=== PATIENT | female | born 1980 | race Caucasian/White ===

== ENCOUNTER 2019-08-29 14:32 | Outpatient (RCR) | payer OTHER, SELFPAY ==
[2019-07-19 14:20] VITALS: BP 116/72; PULSE 79
[2019-08-29 15:15] VITALS: BP 158/72; PULSE 74
== END 2019-09-05 12:17 | disposition home or self-care (01) ==
LOC: ANHOBOP 14:32
PROVIDERS: Visit Provider Obstetrics & Gynecology Gynecology
DX: O24.419 Gestational diabetes mellitus in pregnancy, unspecified control (principal); Z3A.33 33 weeks gestation of pregnancy; Z3A.39 39 weeks gestation of pregnancy
CPT/HCPCS: 59025

== ENCOUNTER 2019-09-01 07:03 | Inpatient (IN) | payer OTHER, SELFPAY ==
[2019-09-01] VITALS (30 sets, daily range): BP systolic 110–144; BP diastolic 58–112; PULSE 63–89; TEMP 36.4–37.2; BMI 37.0
--- NOTE | 2019-09-01 07:49 | WPDOBADMIT ---
Obstetrics - Admit Note Admission Note: record reviewed. No pertinent additions to the history and/or any subsequent changes in the physical findings that are not consistent with the expected course of the were found. Additions to the history and/or subsequent changes in the physical findings follow. Here for MIL. Cervix 3-4/50/-3 AROM with clear fluid. FHTs reactive
--- NOTE | 2019-09-01 07:59 | LDADM ---
This patient, Svetlana Montoya, was admitted to Labor/Delivery/Recovery 108 on 09/01/19 at 07:03. Plans for labor, pain management and were discussed with patient. Patient/family oriented to hospital policies and general routines including ID bracelet, bed and alarms, visiting hours, pain management, procedures, bathroom and other care routines, personal items, smoking policy, room service/diet and guest tray routines, infant security routines, and visiting hours. Patient/Family are encouraged to report perceived risks to care and to ask questions if they do not understand what they are told or what they should do. See OBIX for further documentation.
[2019-09-01 08:12] LABS: Glucose Point of Care 95 (65-105)
[2019-09-01 08:14] LABS: Basophils Percent Auto 0.2 % (0.2-1.2); Eosinophils Absolute Auto 0.1 K/mm3 (0-0.3); Eosinophils Percent Auto 0.9 % (0-4.4); Hematocrit 34.7 % (37.0-47.0); Immature Granulocyte Absolute 0.07 K/mm3 (0.00-0.031); Immature Granulocyte Percent A 0.6 % (0-0.5); Lymphocytes Absolute Auto 2.35 K/mm3 (0.9-3.2); Lymphocytes Percent Auto 19.8 % (18.3-44.2); Mean Corpuscular HGB Conc 31.7 g/dl (32-36); Mean Corpuscular Hemoglobin 29.3 pg (26-34); Mean Corpuscular Volume 92.3 fl (80-100); Mean Platelet Volume 11.2 fl (7.4-10.4); Monocytes Absolute Auto 0.7 K/mm3 (0.1-0.6); Monocytes Percent Auto 5.7 % (2.6-8.5); Neutrophils Absolute Auto 8.7 K/mm3 (1.3-6.7); Neutrophils Percent Auto 72.8 % (45.5-73.1); Platelet Count Result 378 k/mm3 (150-375); Red Blood Count 3.76 M/mm3 (4.2-5.4); Red Cell Distribution Width 16.5 % (11.5-14.5); White Blood Count 11.9 K/mm3 (4.5-10.0)
[2019-09-01 12:18] LABS: Glucose Point of Care 89 (65-105)
[2019-09-01] MEDS: LACTATED RINGERS 1,000 ML 125 ML IV CONT ×2 (13:14→20:07)
[2019-09-01 16:16] LABS: Glucose Point of Care 83 (65-105)
[2019-09-01 20:10] LABS: Glucose Point of Care 118 (65-105)
[2019-09-01 22:22] LABS: Glucose Point of Care 151 (65-105)
[2019-09-01] MEDS: INSULIN ASPART (*BKC) 100 UNITS/ML SUB-Q (23:07)
[2019-09-02] VITALS (161 sets, daily range): BP systolic 79–192; BP diastolic 32–141; PULSE 53–161; RESP 16–18; TEMP 36.7–37.6; O2SAT 89–100
[2019-09-02 00:08] LABS: Glucose Point of Care 165 (65-105)
[2019-09-02] MEDS: INSULIN ASPART (*BKC) 100 UNITS/ML 10 UNITS SUB-Q ×3 (00:25→02:54)
[2019-09-02 01:31] LABS: Glucose Point of Care 158 (65-105)
[2019-09-02] MEDS: AMPICILLIN 2 GM/NS 100 ML 2 GM/100 ML BAG IVPB (02:33)
[2019-09-02 02:49] LABS: Glucose Point of Care 141 (65-105)
[2019-09-02] MEDS: LACTATED RINGERS 1,000 ML 125 ML IV CONT ×2 (04:07→07:36)
[2019-09-02 04:18] LABS: Glucose Point of Care 143 (65-105)
--- NOTE | 2019-09-02 04:43 | WPDANESEPP ---
Anes - Eval Pre Procedure Procedure: labor epidural Date/Time: 09/02/19 04:43 Surgeon: Endy Preop Diagnosis: Pain in labor Pre Op Diagnosis: Induction of Labor Patient Data Age: 39 Gender: F Height: 1.68 m Weight: 104 kg Last Vital Signs Temp 36.9 C 09/02/19 02:37 Pulse 94 09/02/19 04:42 BP 121/62 09/02/19 04:42 Pulse Ox 93 09/02/19 04:42 Allergies Allergy/AdvReac Type Severity Reaction Status Date / Time Pertussis Vaccines Allergy Seizure Verified 08/04/19 13:40 Home Medications Medication Instructions Recorded Confirmed Type PNV cmb#95-ferrous fumarate-FA 1 tablet PO DAILY 08/04/19 09/01/19 History [] aspirin 81 mg PO DAILY 08/04/19 09/01/19 History cetirizine [Zyrtec] 10 mg PO DAILY 08/04/19 09/01/19 History ergocalciferol (vitamin D2) 50,000 unit PO WEEKLY 08/04/19 09/01/19 History [Vitamin D2] insulin NPH isoph U-100 human 20 unit SUBCUT HS 08/04/19 09/01/19 History [Humulin N NPH U-100 Insulin] Laboratory Tests 09/01/19 09/01/19 09/01/19 07:54 08:04 08:04 WBC 11.9 K/mm3 H K/mm3 (4.5-10.0) RBC 3.76 M/mm3 L M/mm3 (4.2-5.4) Hgb 11.0 g/dL L g/dL (12.0-15.0) Hct 34.7 % L % (37.0-47.0) MCV 92.3 fl fl (80-100) MCH 29.3 pg pg (26-34) MCHC 31.7 g/dl L g/dl (32-36) RDW 16.5 % H % (11.5-14.5) Plt Count 378 k/mm3 H k/mm3 (150-375) MPV 11.2 fl H fl (7.4-10.4) Immature Gran % (Auto) 0.6 % H % (0-0.5) Neut % (Auto) 72.8 % % (45.5-73.1) Lymph % (Auto) 19.8 % % (18.3-44.2) [place] % (Auto) 5.7 % % (2.6-8.5) Eos % (Auto) 0.9 % % (0-4.4) Baso % (Auto) 0.2 % % (0.2-1.2) Lymph # (Auto) 2.35 K/mm3 K/mm3 (0.9-3.2) [place] # (Auto) 0.7 K/mm3 H K/mm3 (0.1-0.6) Eos # (Auto) 0.1 K/mm3 K/mm3 (0-0.3) Baso # (Auto) 0.0 K/mm3 K/mm3 (0.0-0.1) Abs Immat Gran (auto) 0.07 K/mm3 H K/mm3 (0.00-0.031) Absolute Neuts (auto) 8.7 K/mm3 H K/mm3 (1.3-6.7) Absolute Nucleated RBC 0.0 K/mm3 K/mm3 (0.0-0.012) Nucleated RBC % 0.0 % % (0.0-0.2) POC Capillary Glucose 95 mg/dl mg/dl (65-105) RPR Pending Blood Type Antibody Screen 09/01/19 09/01/19 09/01/19 08:04 12:01 16:01 WBC RBC Hgb Hct MCV MCH MCHC RDW Plt Count MPV Immature Gran % (Auto) Neut % (Auto) Lymph % (Auto) [place] % (Auto) Eos % (Auto) Baso % (Auto) Lymph # (Auto) [place] # (Auto) Eos # (Auto) Baso # (Auto) Abs Immat Gran (auto) Absolute Neuts (auto) Absolute Nucleated RBC Nucleated RBC % POC Capillary Glucose 89 mg/dl mg/dl 83 mg/dl mg/dl (65-105) (65-105) RPR Blood Type A Positive Antibody Screen Negative 09/01/19 09/01/19 09/02/19 20:01 22:18 00:05 WBC RBC Hgb Hct MCV MCH MCHC RDW Plt Count MPV Immature Gran % (Auto) Neut % (Auto) Lymph % (Auto) [place] % (Auto) Eos % (Auto) Baso % (Auto) Lymph # (Auto) [place] # (Auto) Eos # (Auto) Baso # (Auto) Abs Immat Gran (auto) Absolute Neuts (auto) Absolute Nucleated RBC Nucleated RBC % POC Capillary Glucose 118 mg/dl H mg/dl 151 mg/dl H mg/dl 165 mg/dl H mg/dl (65-105) (65-105) (65-105) RPR Blood Type An
[2019-09-02 04:58] LABS: Glucose Point of Care 133 (65-105)
[2019-09-02] MEDS: INSULIN ASPART (*BKC) 100 UNITS/ML 15 UNITS SUB-Q (05:14)
[2019-09-02 06:16] LABS: Glucose Point of Care 87 (65-105)
[2019-09-02] MEDS: AMPICILLIN 1 GM/NS 50 ML 1 GM/50 ML BAG IVPB (06:16)
[2019-09-02 07:09] LABS: Glucose Point of Care 54 (65-105)
[2019-09-02 09:02] LABS: Glucose Point of Care 59 (65-105)
[2019-09-02 09:02] LABS: Glucose Point of Care 83 (65-105)
--- NOTE | 2019-09-02 10:02 | WPDANESEFPP ---
Anes - Eval Final PreProcedure Day of Procedure 09/02/19 10:02 Patient weight: obese Heart: regular rate and rhythm Lungs: clear to auscultation Airway: Mallampati scale class II Neurological: alert and oriented ASA classification: III Emergent: no Anesthetic plan: proceed Anesthesia type and monitoring: regional epidural and standard monitoring Other findings: use existing epid for c/s Informed Consent: The patient's anesthetic plan and its attendant risks and benefits were discussed with the patient/family/POA. Questions were solicited and answers provided to the satisfaction of the patient/family/POA.
--- NOTE | 2019-09-02 10:16 | P.PNOB_ITS ---
OB - PN: Subj Subjective Date/time seen: 09/02/19 10:16 Interval history: Patient with slow progress to complete after she allowed pitocin to be started yesterday afternoon. Now has been complete and has been pushing without descent. Decided csection at 0951 when I called in for report. There is a delay due to the anesthesia cart having technical issues. FHTs re active and patient stable. Will proceed when able. OB - PN: Obj Data Labs CBC & Chem 7: 09/01/19 08:04 Labs: Laboratory Results - last 24 hr 09/01/19 09/01/19 09/01/19 12:01 16:01 20:01 POC Capillary Glucose 89 83 118 H 09/01/19 09/02/19 09/02/19 22:18 00:05 01:26 POC Capillary Glucose 151 H 165 H 158 H 09/02/19 09/02/19 09/02/19 02:47 03:58 04:49 POC Capillary Glucose 141 H 143 H 133 H 09/02/19 09/02/19 09/02/19 06:12 07:04 08:08 POC Capillary Glucose 87 54 L* 59 L* 09/02/19 08:54 POC Capillary Glucose 83 OB - PN A/P Time Spent With Patient Time: Total time spent is greater than 50% in coordination of care (as d ocumented) at patient's floor/unit and/or counseling patient:
[2019-09-02 10:31] LABS: Glucose Point of Care 69 (65-105)
[2019-09-02 10:48] LABS: Rapid Plasma Reagin Non-Reactive (NonReactive)
--- NOTE | 2019-09-02 11:13 | PM.OP ---
Procedure Note - Brief Procedure Note - Brief Date of procedure: 09/02/19 Pre-op diagnosis: Induction of Labor IUP 39 5/7 wks GDMA2 failure to descend Post-op diagnosis: same Procedure performed: LTCS Anesthesia: epidural Surgeon: Norma Schumacher MD Estimated blood loss (mL): 235 Drains: Yes (zuniga) Packing: No Pathology: yes (placenta) Complications: No immediate complications Condition: stable Disposition: PACU Findings: Very thick meconium; male infant in CRISTHIAN position deep in pelvis; 4/9 Apgars; weight 7#1oz; cord around body x 1 with minimal warton's jelly uterus with 6 cm anterior left fundal fibroid subserosal; vesiouterine peritoneum over anterior uterus lower segment with friable, tissue
--- NOTE | 2019-09-02 11:17 | PM.OBDSVD ---
DS: Diagnosis Admitting Diagnosis Admitting Diagnosis: IUP 39 5/7 wks GDMA2 Discharge Diagnosis (1) 39 weeks gestation of : Code(s): Z3A.39 - 39 weeks gestation of Status: Acute (2) Failure of descent in labor, delivered, current hospitalization: Code(s): O62.2 - Other uterine inertia Status: Acute (3) GDM (gestational diabetes mellitus): Code(s): O24.419 - Gestational diabetes mellitus in , unspecified control Status: Acute OB - DS: Summary OB Procedures : NST and Ultrasound OB Procedures Intrapartum: OB Procedures: : None Peripartum Data Procedures: Procedures Operation Date: 09/02/19 10:15 <No data on this case meets the specified criteria> Time Spent with Patient Time attestation: Total time spent providing and/or coordinating discharge services: DS: Data Data Completed and Pending Labs on day of discharge: Labs from last 24 hours 09/02/19 09/02/19 09/02/19 10:26 08:54 08:08 POC Capillary Glucose 69 83 59 L* R 09/02/19 09/02/19 09/02/19 07:04 06:12 04:49 POC Capillary Glucose 54 L* 87 133 H R 09/02/19 09/02/19 09/02/19 03:58 02:47 01:26 POC Capillary Glucose 143 H 141 H 158 H R 09/02/19 09/01/19 09/01/19 00:05 22:18 20:01 POC Capillary Glucose 165 H 151 H 118 H R 09/01/19 09/01/19 09/01/19 16:01 12:01 08:04 POC Capillary Glucose 83 89 RPR Non-reactive Discharge Plan Discharge Attending physician on discharge: Norma Schumacher Consulting providers: Harsha Ramey ; Sheng Perez Discharging Clinician: Eli Ward Anticipated Discharge Date/Time: 09/04/19 10:55 Patient Disposition: Home, Self-Care Activity: no driving, may drive after 2 weeks and pelvic rest Diet: regular Wound Care Instructions: incision open to air Discharge Instructions: Education: Mom and Baby Guide Given to: Mother Follow-Up: Call your delivering provider's office for an appointment to be seen in: 1 Week Mom and baby should come to the [facility] for the follow-up appointment. Appointment Date/Time: September 05, 2019 at 12:30 pm What to expect at your follow-up visit: Physical Assessment Call [phone] if you are unable to keep your appointment time. BREAST CARE: 1. Wear a snug supportive bra. 2. For engorgement discomfort: Breast Feeding: A. Apply warm moist washcloths B. Express milk as needed to relieve engorgement C. Wear loose clothing 3. For sore nipples: A. Identify correct latch-on B. Apply warm moist washcloths before and after nursing C. Air dry nipples after nursing D. May apply Lansinoh cream to nipples ABDOMINAL INCISION: (if applicable) 1. Allow incision to air dry 2. Do NOT use lotions for powders on your incision 3. When showering, allow soap and water to run over the incision, but do not wash incision EPISIOTOMY/PERINEAL CARE: 1. Until bleeding stops, use your peewee bottle after urinating 2. Change your pad frequently throughout the day 3. No tub baths until seen by your physician - You may shower ACTIVITY: 1. Rest as much as possible. 2. Do not exercise or lift anything heavier than your baby (such as laundry or other children.) 3. Avoid stairs or driving as much as possible. 4. Do not put anything into the vagina. No douching, tampons, or sexual activity until seen by physician. NOTIFY PHYSICIAN IF YOU HAVE ANY QUESTIONS OR IF ANY OF THE FOLLOWING SYMPTOMS OCCUR: 1. If your episiotomy or incision becomes red, swollen, or more painful than what you have experienced in the hospital. 2. If your vaginal bleeding becomes foul smelling. 3. If your vaginal bleeding becomes more heavy than a period or if your bleeding changes from pink to bright red. However, you may pass an
--- NOTE | 2019-09-02 12:20 | OP_ITS ---
DATE OF PROCEDURE: 09/02/2019 PREOPERATIVE DIAGNOSES: 1. Intrauterine at 39 and 5/7th weeks. 2. Gestational diabetes, insulin requiring. 3. Failure to descend. POSTOPERATIVE DIAGNOSES: 1. Intrauterine at 39 and 5/7th weeks. 2. Gestational diabetes, insulin requiring. 3. Failure to descend. PROCEDURE: Primary low-transverse section. ANESTHESIA: Epidural. FINDINGS: Upon opening the uterine cavity, there is very thick meconium fluid noted. The head is deep in the pelvis and in the left occiput posterior position. The cord is noted to be very clumsy with minimal Dittmer's jelly. It is around the body x1 loosely. The Apgars are 4 at 1 minute, 9 at 5 minutes; 7 pounds 1 ounce male . Uterus has a 6 cm fibroid on the left anterior fundus that is subserosal. The tubes and ovaries appear grossly normal. The vesicouterine peritoneum over the lower uterine segment is very friable and clumsy. Has vesicular appearing tissue that tears very easily. ESTIMATED BLOOD LOSS: 235 cc. PATHOLOGY: Placenta. DESCRIPTION OF PROCEDURE: The patient was taken to the operating room, placed under anesthesia. Once the technical difficulties with the anesthesia cart were resolved, the patient's epidural was placed. Once anesthesia was deemed adequate, she was prepped and draped in usual sterile fashion. The Pfannenstiel skin incision was made with a scalpel and carried down to the underlying layer of fascia with the scalpel. The midline was incised with a scalpel in a horizontal fashion. The incision was extended laterally using Ramírez scissors. Subcutaneous tissues are Bovie cauterized for hemostasis. The fascial edges were grasped with Ochsner, tented and dissected off using sharp dissection and blunt dissection. The rectus muscles were in the midline. The peritoneum was tented and entered with Metzenbaum. The incision was extended with blunt traction. The Oswald O retractor was placed. The Pean was used to grasp the vesicouterine peritoneum. It does not hold, the tissue was very friable and tears easily. The tissue was grasped deeper and further caudally, tented and entered with Metzenbaum. It was noted to be very friable and very thick. There are some vesicular appearing tissues on the surface. The lower uterine segment has been incised in a transverse fashion. Very thick meconium was noted. The turf grower was already present in the operating room at this time. The infant was brought up from the pelvis into the incision and the was fully delivered. The cord was clamped and cut and the infant handed immediately to the waiting pediatric team. The cord was clamped and cut. Dissection was taken for gases and cord blood. The placenta was removed using manual traction. The uterus was cleared of all clots and debris. The posterior edges of the uterine incision were grasped with ring forceps. The uterine incision was then closed using 0 Monocryl in a running locked fashion. Same suture was used to imbricate. Good hemostasis was noted. The vesicouterine peritoneum above the incision is noted to have several bleeding areas that were cauterized with Bovie. The fibroid and tubes and ovaries are inspected and noted as above. The Oswald O retractor was removed. The fascia was closed using 0 Vicryl in a running fashion. Subcutaneous tissues are irrigated and made hemostatic using Bovie cautery. Skin was closed using 4-0 Vicryl in a subcuticular fashion. [place]-Flex was placed over the incision. The patient was taken to Recovery in stable condition. Shaggy I MT: Cammy
--- NOTE | 2019-09-02 14:22 | OBPPTRN ---
Patient transferred to post room #288 via stretcher. Support person present. Oriented to unit, room, information board, rooming in, admission packet and security measures. Patient verbalizes understanding.
--- NOTE | 2019-09-02 15:20 | PC.NURSE ---
Consulted with patient, mother states made attempts to latch after delivery with and without nipple shield. Reports shield was used due to keeps tongue up and does not allow for a deep latch. Reviewed feeding cues, frequencies, duration of feedings, feeding elimination flow sheet, and signs of adequate intake. Demonstrated stimulation techniques to wake for feeding. Assisted with to breast. Reviewed positioning/alignment in cross cradle, holding breast in U hold and guided asymmetrical latch on. was unable to latch correctly. keeps tongue up and does not drop to allow correct latch. Discussed to allow infant to suck on a clean finger for a few minutes before latching to assist with tongue training to drop tongue. Several attempts made before infant was able to latch correctly using a nipple shield. Once on, infant made no effort to suckle. Attempt for 10 minutes with no effective suckling. Advised to skin to skin and attempt again in 30 minutes. Instructed mother to call out for RN assistance if she is unable to latch infant for feeding or she has discomfort with nursing. Instructed feeding should be initiated three hours from start of last feeding or if feeding cues are noted before. Mother voiced understanding of information shared.
[2019-09-02] MEDS: KETOROLAC 30 MG/ML VIAL (*BKC) IV PUSH (16:08)
[2019-09-02] MEDS: DEXTROSE 5%/0.45% SOD CHL 1,000 ML 125 ML IV CONT (18:18)
[2019-09-03 01:14] VITALS: BP 111/63; PULSE 91; RESP 17; TEMP 36.9
[2019-09-03 04:59] LABS: Basophils Percent Auto 0.1 % (0.2-1.2); Eosinophils Percent Auto 0.1 % (0-4.4); Hematocrit 29.3 % (37.0-47.0); Hemoglobin 9.4 g/dL (12.0-15.0); Immature Granulocyte Absolute 0.14 K/mm3 (0.00-0.031); Immature Granulocyte Percent A 0.7 % (0-0.5); Lymphocytes Absolute Auto 1.87 K/mm3 (0.9-3.2); Lymphocytes Percent Auto 9.8 % (18.3-44.2); Mean Corpuscular HGB Conc 32.1 g/dl (32-36); Mean Corpuscular Hemoglobin 29.1 pg (26-34); Mean Corpuscular Volume 90.7 fl (80-100); Mean Platelet Volume 10.3 fl (7.4-10.4); Monocytes Absolute Auto 0.9 K/mm3 (0.1-0.6); Monocytes Percent Auto 4.9 % (2.6-8.5); Neutrophils Percent Auto 84.4 % (45.5-73.1); Platelet Count Result 294 k/mm3 (150-375); Red Blood Count 3.23 M/mm3 (4.2-5.4); Red Cell Distribution Width 16.7 % (11.5-14.5)
[2019-09-03 05:10] VITALS: BP 112/64; PULSE 90; RESP 17; TEMP 36.8
[2019-09-03] MEDS: IBUPROFEN 600 MG TABLET PO ×3 (05:21→20:51)
[2019-09-03 07:30] VITALS: BP 110/58; PULSE 90; RESP 16; RESP 18; TEMP 36.2; O2SAT 98
[2019-09-03] MEDS: DOCUSATE SODIUM 100 MG CAPSULE PO ×2 (08:55→17:45)
[2019-09-03] MEDS: MULTIVIT/MIN/PREN/FOL AC/IRON TABLET 1 TAB PO (08:56)
[2019-09-03] MEDS: POLYSACCHARIDE IRON COMPLEX 150 MG CAPSULE PO ×2 (08:56→17:45)
--- NOTE | 2019-09-03 11:44 | WPDANLDPN2 ---
Anes-Prog Note L&D Date/Time: 09/03/19 11:44 Comfortable throughout: section Neuraxial method: epidural Epidural/Spinal procedure site: clean & non-tender Neuro status: Neuro function grossly intact. Cardiovascular status: normal Respiratory status: normal Airway patency: baseline Mental status: baseline Post-Op hydration status: normal Vital Signs: Last Vital Signs Temp 36.8 C 09/03/19 05:10 Pulse 90 09/03/19 05:10 Resp 17 09/03/19 05:10 BP 112/64 09/03/19 05:10 Pulse Ox 97 09/02/19 17:00 Pain score (VAS): 0/10. Patient resting in bed at time of assessment, appears comfortable. Support person at bedside. I/O: Intake & Output 09/02/19 09/03/19 09/03/19 23:59 07:59 15:59 Intake Total 300 1500 Output Total 3000 Balance 300 -1500 Post-procedural complaints: none Patient feedback: Patient satisfied with anesthetic care.
--- NOTE | 2019-09-03 11:45 | WPDANLDNPN2 ---
Anes-Prog Note L&D-Neuraxial Date/Time: 09/03/19 11:45 Neuraxial medications: epidural PF morphine Opiod-related complaints: none Patient feedback: Patient satisfied with post-operative pain management.
--- NOTE | 2019-09-03 14:16 | PM.OBPNVD ---
OB - PN: Subj Subjective Date/time seen: 09/03/19 14:16 Interval history: Patient with slow progress to complete after she allowed pitocin to be started yesterday afternoon. Now has been complete and has been pushing without descent. Decided csection at 0951 when I called in for report. There is a delay due to the anesthesia cart having technical issues. FHTs reactive and patient stable. Will proceed when able. Patient comments: pain well controlled, tolerating diet and flatus present [place] baby status: doing well feeding status: exclusively breast feeding OB - PN: Obj Data Labs CBC & Chem 7: 09/03/19 04:49 Labs: Laboratory Results - last 24 hr 09/03/19 04:49 WBC 19.0 H RBC 3.23 L Hgb 9.4 L Hct 29.3 L MCV 90.7 MCH 29.1 MCHC 32.1 RDW 16.7 H Plt Count 294 MPV 10.3 Immature Gran % (Auto) 0.7 H Neut % (Auto) 84.4 H Lymph % (Auto) 9.8 L [place] % (Auto) 4.9 Eos % (Auto) 0.1 Baso % (Auto) 0.1 L Lymph # (Auto) 1.87 [place] # (Auto) 0.9 H Eos # (Auto) 0.0 Baso # (Auto) 0.0 Abs Immat Gran (auto) 0.14 H Absolute Neuts (auto) 16.0 H Absolute Nucleated RBC 0.0 Nucleated RBC % 0.0 OB - PN A/P Plan day: 1 Comments: Desires infant to be circumcised. Procedure discussed as well as risk i.e infection, bleeding, injury to penis,need of surgery later. Couple voiced verbalized. All question answered. Time Spent With Patient Time: Total time spent is greater than 50% in coordination of care (as documented) at patient's floor/unit and/or counseling patient: Time with patient: 15 - 25 minutes Review of Systems Constitutional: Constitutional: Reports no additional constitutional complaints Cardiovascular: Cardiovascular: Reports no additional cardiovascular complaints Respiratory: Respiratory: Reports no additional respiratory complaints Gastrointestinal: Gastrointestinal: Reports no additional gastrointestinal complaints Exam Const: General: comfortable, no acute distress, alert and awake Resp: Auscultation: clear to auscultation bilaterally Cardio: Rate: regular rate GI: Auscultation: normal bowel sounds Other: Incision: C/D/I
[2019-09-03 20:36] VITALS: BP 124/61; PULSE 79; RESP 18; TEMP 36.8; O2SAT 96
[2019-09-04] MEDS: IBUPROFEN 600 MG TABLET PO (05:42)
[2019-09-04] MEDS: DOCUSATE SODIUM 100 MG CAPSULE PO (08:40)
[2019-09-04] MEDS: MULTIVIT/MIN/PREN/FOL AC/IRON TABLET 1 TAB PO (08:40)
[2019-09-04] MEDS: POLYSACCHARIDE IRON COMPLEX 150 MG CAPSULE PO (08:40)
[2019-09-04 09:15] VITALS: BP 114/61; PULSE 60; RESP 20; TEMP 36.8; O2SAT 98
--- NOTE | 2019-09-04 10:53 | P.PNOB_ITS ---
OB - PN: Subj Subjective Date/time seen: 09/04/19 10:53 Interval history: Patient with slow progress to complete after she allowed pitocin to be started yesterday afternoon. Now has been complete and has been pushing without descent. Decided csection at 0951 when I called in for report. There is a delay due to the anesthesia cart having technical issues. FHTs re active and patient stable. Will proceed when able. Patient comments: no complaints, pain well controlled, tolerating diet and flatus present baby status: doing well and nursing well [place] feeding status: exclusively breast feeding OB - PN: Obj Data Labs CBC & Chem 7: 09/03/19 04:49 OB - PN A/P Plan day: 2 Plan: discharge home Time Spent With Patient Time: Total time spent is greater than 50% in coordination of care (as documented) at patient's floor/unit and/or counseling patient: Time with patient: less than 15 minutes Review of Systems Constitutional: Constitutional: Reports no additional constitutional complaints Cardiovascular: Cardiovascular: Reports no additional cardiovascular complaints Respiratory: Respiratory: Reports no additional respiratory complaints Gastrointestinal: Gastrointestinal: Reports no additional gastrointestinal complaints Exam Const: General: comfortable, no acute distress, alert and awake Resp: Auscultation: clear to auscultation bilaterally Cardio: Rate: regular rate GI: Auscultation: normal bowel sounds Other: Incision: C/D/I
--- NOTE | 2019-09-04 10:58 | PM.OBDSVD ---
OB - DS: Summary OB Procedures : NST OB Procedures Intrapartum: OB Procedures: : None Peripartum Data Procedures: Procedures Operation Date: 09/02/19 10:15 Actual Procedures Side Surgeon p Section Norma Schumacher MD Time Spent with Patient Time attestation: Total time spent providing and/or coordinating discharge services: DS: Data Data Completed and Pending Pending studies at discharge: Pending at discharge 09/02/19 10:51 Surgical [PTH] Routine Discharge Plan Discharge Attending physician on discharge: Norma Schumacher Discharging Clinician: Eli Ward Anticipated Discharge Date/Time: 09/04/19 10:55 Patient Disposition: Home, Self-Care Activity: no driving, may drive after 2 weeks and pelvic rest Diet: regular Wound Care Instructions: incision open to air Patient Instructions: Antibiotic Form Stand Alone Forms: General Discharge Information Follow-up/Referrals: Norma Schumacher MD [Physician] - 1 Week Discharge Medications: New hydrocodone-acetaminophen [[place]] 10-325 mg Tablet 1 tab PO Q3H PRN (Reason: Pain Rated 7-10) Qty: 20 RF: 0 docusate sodium 100 mg Capsule 100 mg PO BID Qty: 60 RF: 0 polysaccharide iron complex 150 mg iron Capsule 150 mg PO BIDWM Qty: 60 RF: 0 ibuprofen 600 mg Tablet 600 mg PO Q6H PRN (Reason: Cramping) Qty: 60 RF: 0 Continued ergocalciferol (vitamin D2) [Vitamin D2] 1,250 mcg (50,000 unit) Capsule 50,000 unit PO WEEKLY RF: 0 PNV cmb#95-ferrous fumarate-FA [] 28 mg iron- 800 mcg Tablet 1 tablet PO DAILY RF: 0 Discontinued Humulin N NPH U-100 Insulin 100 unit/mL Suspension 20 unit SUBCUT HS RF: 0 cetirizine [Zyrtec] 10 mg Tablet 10 mg PO DAILY RF: 0 aspirin 81 mg Tablet,Chewable 81 mg PO DAILY RF: 0 Date of admission: 09/01/19 07:03 Primary Care Provider: UNKNOWN,DOCTOR Admitting Provider: Norma Schumacher Attending physician on admission: Norma Schumacher Condition: Stable
--- NOTE | 2019-09-04 12:36 | PC.NURSE ---
Patient viewed the discharge video Mother & Baby Care, The First Two Weeks . Patient was given the opportunity and encouraged to ask questions. Patient verbalized understanding of information shared and has been given the mother/baby guide for home reference.
[2019-09-05 13:19] VITALS: BP 130/74; PULSE 73; RESP 18; TEMP 36.8
--- NOTE | 2019-09-12 08:18 | PM.IMHP ---
H&P: HPI History of Present Illness Chief complaint: Induction of Labor Narrative: Svetlana Montoya is a 39 year old female here for [facility] for GDMA2. Patient with slow progress to complete and pushing. Had minimal descent with several hours of pushing. Recommended to proceed with csection and patient agreed. otherwise uncomplicated. Followed by MFM with u/s for 6 cm fibroid that remained stable through . [facility] Past Medical History Medical History (Updated 09/02/19 @ 11:18 by Norma Schumacher MD) GDM (gestational diabetes mellitus) Family History Family History (Updated 08/04/19 @ 13:45 by Gene Linares RN) Father Diabetes mellitus Multiple system atrophy P Social History Social History Smoking status: Never smoker Second hand tobacco smoke exposure: No Substance use: never Gender identity (if verbalized by the patient): Female Meds Home Medications and Allergies Home Medications Medication Instructions Recorded Confirmed Type PNV cmb#95-ferrous fumarate-FA 1 tablet PO DAILY 08/04/19 09/01/19 History [] ergocalciferol (vitamin D2) 50,000 unit PO WEEKLY 08/04/19 09/01/19 History [Vitamin D2] docusate sodium 100 mg PO BID #60 cap 09/04/19 Rx hydrocodone-acetaminophen [[place]] 1 tab PO Q3H PRN #20 tablet 09/04/19 Rx ibuprofen 600 mg PO Q6H PRN #60 tablet 09/04/19 Rx polysaccharide iron complex 150 mg PO BIDWM #60 cap 09/04/19 Rx Allergies Allergy/AdvReac Type Severity Reaction Status Date / Time Pertussis Vaccines Allergy Seizure Verified 08/04/19 13:40 Exam Const: General: healthy appearing and alert Orientation/consciousness: patient oriented x3 Resp: Effort & Inspection: normal respiratory effort Auscultation: clear to auscultation bilaterally Cardio: Rate: regular rate Rhythm: regular rhythm GI: GI Palp: Yes Soft to palpation, No Tenderness to palpation present (GI) and No Palpable mass present : External Female Exam: normal external appearance Speculum Exam - Vagina: normal appearance of the vagina and normal vaginal discharge Speculum Exam - Cervix: normal appearance of the cervix Neuro: General: patient oriented x3 Assessment and Plan Assessment and plan (1) Failure of descent in labor, delivered, current hospitalization: Code(s): O62.2 - Other uterine inertia Status: Acute Assessment and Plan: plan to proceed with csection (2) 39 weeks gestation of : Code(s): Z3A.39 - 39 weeks gestation of Status: Acute (3) GDM (gestational diabetes mellitus): Code(s): O24.419 - Gestational diabetes mellitus in , unspecified control Status: Acute
== END 2019-09-04 13:50 | disposition home or self-care (01) | DRG 786 ==
LOC: ANHLDR 09-02 11:20 → ANHOB2 09-04 10:58 → ANHLDR 09-06 09:43 → ANHOB2 09-06 09:43
PROVIDERS: Admitting Provider Obstetrics & Gynecology Gynecology; Visit Provider Obstetrics & Gynecology
PROC: 10D00Z1 Extraction of Products of Conception, Low, Open Approach (ICD-10-PCS; CPT 59514; principal; 2019-09-02 10:15)
DX: O32.4XX0 Maternal care for high head at term, not applicable or unspecified (principal); O41.1230 Chorioamnionitis, third trimester, not applicable or unspecified; O42.92 Full-term premature rupture of membranes, unspecified as to length of time between rupture and onset of labor; O77.0 Labor and delivery complicated by meconium in amniotic fluid; O76 Abnormality in fetal heart rate and rhythm complicating labor and delivery; O69.82X0 Labor and delivery complicated by other cord entanglement, without compression, not applicable or unspecified; O62.2 Other uterine inertia; O24.424 Gestational diabetes mellitus in childbirth, insulin controlled; O99.214 Obesity complicating childbirth; E66.9 Obesity, unspecified; Z37.0 Single live birth; Z3A.39 39 weeks gestation of pregnancy
CPT/HCPCS: 36415; 85025; 86592; 86850; 86900; 86901; 88307; A9270; J0290; J1815; J1885; J2590; J2795; J7120

== ENCOUNTER 2021-01-08 08:34 | Outpatient (CLI) | payer OTHER, SELFPAY ==
[2021-01-08 09:55] LABS: Vitamin D 25 Hydroxy 55.4 ng/mL
== END 2021-01-08 08:35 | disposition home or self-care (01) ==
PROVIDERS: Visit Provider Obstetrics & Gynecology Gynecology
DX: E55.9 Vitamin D deficiency, unspecified (principal)
CPT/HCPCS: 36415; 82306; 99212; G0463

== ENCOUNTER 2022-06-23 16:18 | Observation (INO) | payer OTHER, SELFPAY ==
[2022-06-23] VITALS (19 sets, daily range): BP systolic 106–168; BP diastolic 66–94; PULSE 76; RESP 16; TEMP 37.1; O2SAT 91–100
--- NOTE | ~2022-06-23 | US_ITS ---
EXAMINATION: US renal BI DATE: 06/23/2022 21:30 INDICATION: R flank pain, dark urine, n/v TECHNIQUE: Multiple grayscale and Doppler ultrasound images of the kidneys were obtained. COMPARISON: CT abdomen and pelvis and limited abdominal ultrasound performed concurrently. FINDINGS: The right kidney measures 11.1 x 4.2 x 5.7 cm. The left kidney measures 11.7 x 5.8 x 6.1 cm. The kidn eys demonstrate normal parenchymal echogenicity. Anechoic, avascular areas in the left renal pelvis l ikely correspond to the parapelvic cysts seen in the concurrent CT. There is no hydronephrosis. The b ladder is normal. IMPRESSION: Unremarkable renal sonogram findings. Reviewed, dictated and finalized at location K. LLURGICAL ENGINEER
--- NOTE | ~2022-06-23 | CT_ITS ---
EXAMINATION: CT abdomen pelvis w con DATE: 06/23/2022 21:30 INDICATION: RUQ pain, R flank pain, nausea and vomiting, elevated LFTs. TECHNIQUE: Computed tomography (CT) of the abdomen and pelvis was performed with 100 mL Omnipaque-350 intravenous contrast. Automated exposure control and iterative reconstruction technique were employe d. The dose-length product was 922.67 mGy-cm. COMPARISON: Renal and limited abdominal ultrasound examinations performed concurrently. FINDINGS: Lower thorax: Small hiatal hernia. Liver: Hepatomegaly. Mild intrahepatic bile duct dilation. Biliary/Gallbladder: Mild gallbladder hydrops. Mild gallbladder wall thickening/inflammatory change. Mild extrahepatic bile duct dilation, common duct measures 7 mm at the brad hepatis. Normal tapering distal duct without stone or mass detected. Pancreas: No mass or duct dilation. Spleen: Normal. Adrenals:No mass. Kidneys: No mass, stone, or hydronephrosis. Bilateral peripelvic cysts, more numerous in the left kid iliana. GI tract: No small or large bowel dilation. Appendix not confidently visualized. Mesentery/Peritoneum: No ascites, mass, or free air. Retroperitoneum: No mass. Pelvis: The bladder is normal. Calcified fundal uterine fibroid. 1.7 cm left ovarian cyst. Soft Tissues: Uncomplicated fat containing umbilical hernia. Bones: No acute osseous finding. IMPRESSION: Hepatomegaly. Cholelithiasis. Mild gallbladder hydrops with gallbladder wall thickening. Mild intra a nd extrahepatic bile duct dilation, without definite obstructing distal common bile duct stone or mas s, possibly reactive to the inflammatory gallbladder change. Reviewed, dictated and finalized at location K. T TIRE REPAIRER IMPRESSION: Hepatomegaly. Cholelithiasis. Mild gallbladder hydrops with gallbladder wall th ickening. Mild intra and extrahepatic bile duct dilation, without definite obst ructing distal common bile duct stone or mass, possibly reactive to the inflamm atory gallbladder change.
--- NOTE | ~2022-06-23 | US_ITS ---
EXAMINATION: US abdomen limited DATE: 06/23/2022 21:30 INDICATION: n/v, R flank pain TECHNIQUE: Multiple grayscale and Doppler ultrasound images of limited portions of the abdomen were o btained. COMPARISON: CT abdomen and pelvis and renal ultrasound performed concurrently. FINDINGS: The visualized portions of the pancreas are normal. The liver is enlarged with normal echog enicity and echotexture. No surface nodularity. Normal hepatopetal flow in the main portal vein. Mild gallbladder hydrops. Gallbladder wall thickening to 4 mm. Multiple small gallstones present in the g allbladder fundus. The common bile duct measures 5 mm. There was no sonographic [place] sign. IMPRESSION: Mild gallbladder hydrops with cholelithiasis and gallbladder wall thickening. In concert with the con current CT findings, these findings may represent cholecystitis in the appropriate clinical context. Reviewed, dictated and finalized at location K. SURY DIRECTOR IMPRESSION: Mild gallbladder hydrops with cholelithiasis and gallbladder wall thickening. I n concert with the concurrent CT findings, these findings may represent cholecy stitis in the appropriate clinical context.
--- NOTE | ~2022-06-23 | XR_ITS ---
EXAMINATION: XR ERCP DATE: 06/24/2022 15:29 INDICATION: Gallstones. Right upper quadrant pain. TECHNIQUE: Multiple spot fluoroscopic images of the right upper quadrant were obtained during endosco pic retrograde cholangiopancreatography (ERCP) performed by Dr. Guerrero. Radiologist was not present fo r the imaging or procedure. The amount of fluoroscopy time used during this procedure was 3.1 minutes . COMPARISON: None. FINDINGS: Cannulation and retrograde contrast injection into the common bile duct demonstrates small filling de fect at the distal most aspect of the common bile duct. The stone measures 5 mm the common bile duct up to 7 mm in maximal diameter utilizing the height of the L1 vertebral body as an internal control. No other filling defects appreciated. IMPRESSION: 1. Millimeter gallstone in the mildly dilated distal most common bile duct. Please refer to the ERCP procedure note for additional details. Reviewed, dictated and finalized at location A. R EQUIPMENT INSTALLER IMPRESSION: 1. Millimeter gallstone in the mildly dilated distal most common bile duct. Ple ase refer to the ERCP procedure note for additional details.
[2022-06-23 18:20] LABS: Appearance Urine Slightly Cloudy (Clear); Bilirubin Urine 2+ (Negative); Blood Urine Trace-intact (Negative); Color Urine Yellow (Yellow); Glucose Urine UA Negative (Negative); Ketones Urine 1+ mg/dL (Negative); Leukocyte Esterase Ur Negative LEU/UL (Negative); Nitrate Urine Negative (Negative); Protein Urine 2+ mg/dL (Negative); Specific Grav Ur 1.025 (1.001-1.035); pH Urine 6.5 (5.0-9.0)
[2022-06-23 18:42] LABS: Bacteria Urine Trace /hpf; Mucus Urine Heavy /lpf; RBC Urine 21-50 /hpf (0-2); Squamous Epithelial Cell Urine Many /hpf (Few); WBC Urine 0-3 /hpf
[2022-06-23 18:46] LABS: Add Urine Microscopic? YES
[2022-06-23 20:01] LABS: Basophils Percent Auto 0.3 % (0.2-1.2); Eosinophils Percent Auto 0.3 % (0-4.4); Hematocrit 37.3 % (37.0-47.0); Hemoglobin 12.2 g/dL (12.0-15.0); Immature Granulocyte Absolute 0.03 K/mm3 (0.00-0.031); Immature Granulocyte Percent A 0.3 % (0-0.5); Lymphocytes Absolute Auto 1.05 K/mm3 (0.9-3.2); Lymphocytes Percent Auto 11.6 % (18.3-44.2); Mean Corpuscular HGB Conc 32.7 g/dl (32-36); Mean Corpuscular Hemoglobin 30.1 pg (26-34); Mean Corpuscular Volume 92.1 fl (80-100); Mean Platelet Volume 10.3 fl (7.4-10.4); Monocytes Absolute Auto 0.6 K/mm3 (0.1-0.6); Monocytes Percent Auto 6.7 % (2.6-8.5); Neutrophils Absolute Auto 7.3 K/mm3 (1.3-6.7); Neutrophils Percent Auto 80.8 % (45.5-73.1); Platelet Count Result 416 k/mm3 (150-375); Red Blood Count 4.05 M/mm3 (4.2-5.4); Red Cell Distribution Width 13.4 % (11.5-14.5); White Blood Count 9.1 K/mm3 (4.5-10.0)
[2022-06-23 20:12] LABS: Alanine Aminotransferase 576 U/L (6-35); Albumin Level 4.4 g/dL (3.5-5.1); Alkaline Phosphatase 161 U/L (38-126); Anion Gap 12 mmol/L (8-16); Aspartate Amino Transferase 742 U/L (14-36); Blood Urea Nitrogen 9 mg/dL (7-17); Calcium 8.9 mg/dL (8.4-10.2); Carbon Dioxide 26 mmol/L (22-30); Chloride 100 mmol/L (98-107); Estimated CRCL calculation 145 ml/min; Estimated Glomerular Filt Rate > 60; Glucose 138 mg/dL (65-110); Lipase 242 U/L (23-300); Sodium 138 mmol/L (137-145)
[2022-06-23 20:35] LABS: Beta HCG Quantitative < 2.39 mIU/ML
[2022-06-23] MEDS: LACTATED RINGERS 1,000 ML 999 ML IV CONT (21:14)
[2022-06-23] MEDS: METOCLOPRAMIDE HCL INJ 10 MG/2 ML VIAL IV PUSH (21:14)
[2022-06-23] MEDS: MORPHINE SULFATE (*CRX) 4 MG/ML INJ IV PUSH (23:10)
--- NOTE | 2022-06-23 23:31 | PC.NURSE ---
Patient LR still running. This RN will start antibiotics as soon as that is done.
[2022-06-23 23:42] LABS: SARS-CoV-2 RNA PCR Negative
--- NOTE | 2022-06-23 23:45 | ED.ABDPAIN ---
HPI - Abdominal Pain General Chief Complaint: Abdominal Pain Stated Complaint: RUQ pain Time Seen by Provider: 06/23/22 19:34 History of Present Illness HPI narrative: Patient has had intermittent right flank pain and nausea and vomiting since her 2 years ago, but today it got much worse, with severe pain and multiple episodes of emesis. No fevers or chills but feels like her urine is dark because she cannot keep anything down. Related Data Home Medications Medication Instructions Recorded Confirmed ergocalciferol (vitamin D2) 1,250 50,000 unit PO WEEKLY 08/04/19 09/01/19 mcg (50,000 unit) capsule (Vitamin D2) vit no.95-ferrous 1 tablet PO DAILY 08/04/19 09/01/19 fumarate 28 mg-folic acid 800 mcg tablet () Allergies Allergy/AdvReac Type Severity Reaction Status Date / Time Pertussis Vaccines Allergy Seizure Verified 06/23/22 16:48 Review of Systems Review of Systems: CONST: No fever. HEENT: No sore throat C/V: No chest pain RESP: No cough GI: Reports abdominal pain, nausea, vomiting : Dark urine M/S: No joint pain. SKIN: No rash. NEURO: [No headache or focal numbness or weakness] PSYCH: [No depression] [facility] Past Medical History Medical History GDM (gestational diabetes mellitus) Family History Family History Father Diabetes mellitus Multiple system atrophy P Social History Social History Smoking status: Never smoker Second hand tobacco smoke exposure: No Substance use: never Gender identity (if verbalized by the patient): Female Exam Narrative: EXAMINATION OF ORGAN SYSTEMS/BODY AREAS: Constitutional: Vital signs per nursing GENERAL: Appears uncomfortable HEAD: Normal with no signs of head trauma. EYES: EOMI, conjunctiva normal ENT: Hearing grossly intact LUNGS: Nonlabored breathing. HEART: [Regular rate and rhythm] ABD: [Soft], [tender to palpation] right upper quadrant/flank EXT: Normal range of motion SKIN: [No rashes or lesions.] NEURO: [Alert and oriented x 3. No gross focal sensory or strength deficits.] PSYCH: Normal affect Course Vital Signs Vital signs: Vital Signs Temperature 98.7 F 06/23/22 16:44 Pulse Rate 76 06/23/22 16:44 Respiratory Rate 16 06/23/22 16:44 Blood Pressure 168/94 H 06/23/22 16:44 Pulse Oximetry 99 06/23/22 16:44 Temperature 98.7 F 06/23/22 16:44 Pulse Rate 76 06/23/22 16:44 Respiratory Rate 16 06/23/22 16:44 Blood Pressure 168/94 H 06/23/22 16:44 Pulse Oximetry 99 06/23/22 16:44 MDM - Abdominal Pain MDM Narrative Medical decision making narrative: Electronic medical record was reviewed. Patient presented to the ED with complaint of [abdominal pain and vomiting]. Vitals [were within acceptable limits]. Physical exam revealed [tenderness to palpation in right upper quadrant]. Based on the patient's history and physical exam, my differential includes but is not limited to [cholecystitis, nephrolithiasis, gastritis, gastroenteritis, pancreatitis, appendicitis]. [IV access was established by myself; verbal consent was obtained. [Right] arm was prepped and cleaned with chlorhexidine. The linear probe was also cleansed and covered. 20-gauge 2.5 angiocatheter was placed in the right forearm. The line was secured in place after it was checked and flushed. Patient tolerated the procedure well without any complications.. Patient was given reglan, IV fluids]. CBC, BMP, lipase, LFTs, bilirubin and alk phos were obtained. Labs were pertinent for elevated LFTs, bilirubin signs. [Decision was made to obtain a CT-abdomen and ultrasound to evaluate for acute abdominal process. CT-abdomen consistent with possible cholecystitis.] On reevaluation, the patient is still having pain and she is given a dose of morphine with improvement of symptoms.
[2022-06-24] VITALS (12 sets, daily range): BP systolic 108–150; BP diastolic 62–73; PULSE 60–80; RESP 16–24; TEMP 35.6–36.8; O2SAT 96–100; BMI 34.4
--- NOTE | 2022-06-24 01:01 | ADMGEN ---
This patient, Svetlana Montoya, was admitted to [facility] Surg Room 314-01. Patient/family oriented to hospital policies and general routines including ID bracelet, bed and alarms, visiting hours, pain management, procedures, bathroom and other care routines, personal items, smoking policy, room service/diet, and visiting hours. Information on how to activate the Rapid Response Team has been discussed. Patient/Family are encouraged to report perceived risks to care and to ask questions if they do not understand what they are told or what they should do.
[2022-06-24] MEDS: MORPHINE SULFATE (*CRX) 4 MG/ML INJ IV PUSH ×4 (01:11→11:20)
[2022-06-24 07:30] LABS: Hematocrit 36.7 % (37.0-47.0); Hemoglobin 11.8 g/dL (12.0-15.0); Mean Corpuscular HGB Conc 32.2 g/dl (32-36); Mean Corpuscular Hemoglobin 29.9 pg (26-34); Mean Corpuscular Volume 92.9 fl (80-100); Mean Platelet Volume 10.4 fl (7.4-10.4); Platelet Count Result 352 k/mm3 (150-375); Red Blood Count 3.95 M/mm3 (4.2-5.4); Red Cell Distribution Width 13.6 % (11.5-14.5); White Blood Count 8.3 K/mm3 (4.5-10.0)
[2022-06-24 07:41] LABS: Alanine Aminotransferase 711 U/L (6-35); Albumin Level 3.8 g/dL (3.5-5.1); Alkaline Phosphatase 204 U/L (38-126); Aspartate Amino Transferase 715 U/L (14-36); Bilirubin Direct 0.9 mg/dL (0-0.3); Bilirubin,Total 2.9 mg/dL (0.2-1.3)
[2022-06-24] MEDS: LACTATED RINGERS 1,000 ML 150 ML IV CONT ×3 (08:51→14:08)
[2022-06-24] MEDS: FAMOTIDINE 20 MG/2 ML VIAL IV PUSH ×2 (08:53→20:17)
--- NOTE | 2022-06-24 09:06 | WPDGICN ---
Assessment and Plan Assessment and plan (1) Transaminitis: Code(s): R74.01 - Elevation of levels of liver transaminase levels Status: Acute Assessment and Plan: Elevation of bilirubin and marked elevation of enzymes suggest choledocholithiasis. I will schedule her for ERCP which hopefully can be done later today. I discussed with her the anatomy of the biliary tract. I explained that she probably has stones and/or sludge at the distal common bile duct. I explained that the ERCP is a nonoperative means of clearing the common bile duct prior to a laparoscopic cholecystectomy. Alternatively, 1 could have an open procedure and exploration of the common bile duct. She understands that that would be much more involved. I explained that there is a risk of pancreatitis and a slight risk of bleeding or perforation when performing ERCP. Explained that we try to minimize the risk of pancreatitis through hydration and anti-inflammatory medication. (2) Acute cholecystitis: Code(s): K81.0 - Acute cholecystitis Status: Acute Assessment and Plan: CT scan shows: Hepatomegaly. Cholelithiasis. Mild gallbladder hydrops with gallbladder wall thickening. Mild intra and extrahepatic bile duct dilation, without definite obstructing distal common bile duct stone or mass, possibly reactive to the inflammatory gallbladder change. She may well have a fatty liver but I doubt that her baseline liver enzymes are as high as they are now. She is concerned that her liver might be a problem if we do not find stones in her bile duct. I told her that most likely this is all acute but of course she will be followed afterwards. She has been trying to get connected with the primary care physician but had not done that yet. GI Consult Note Consult date/time: 06/24/22 09:06 HPI: Svetlana Montoya is a 42 year old female who presented to the emergency room yesterday because of persistent vomiting and abdominal pain. She states that ever since she delivered her child 2 years ago, she has periodic attacks of pain that are in the right side of the chest. She feels that more in the back. Lately she has felt more in the right upper quadrant as well. When she gets the pain it feels like a squeezing. She will then get nauseated and after vomiting the pain usually subsides. It was occurring monthly until about 12 months ago. She has had very few episodes until 1 2 weeks ago that never seems to have gone away. She has had persistent discomfort and then this week, specifically yesterday, began vomiting. She had also noticed that her urine was a darker color the last 2 days. She has never had liver disease jaundice or hepatitis. She presses concerned about the fact her liver enzymes are elevated at this time. The in fact are higher than they were yesterday. Review of Systems Review of Systems: All systems reviewed & are unremarkable except as noted in HPI and below PMFSH Past Medical History Medical History GDM (gestational diabetes mellitus) Family History Family History Father Diabetes mellitus Multiple system atrophy P Mother Hypertension Prediabetes Social History Social History Smoking status: Never smoker Second hand tobacco smoke exposure: No Alcohol intake: never Substance use: never Lack of Transportation: No Lack of Food: Never True Current Housing: I Have Housing Concerned About Future Housing: No Difficulty Paying Gas/Electric Bills: No Difficulty Paying for Meds: No Currently Unemployed: No Education: Master's Degree or Higher Difficulty w/ Childcare or Family Care: No Gender identity (if verbalized by the patient): Female Spiritual care concerns: No Meds Home Medications and Allergies Home Medications Medication Instructi
--- NOTE | 2022-06-24 10:59 | PM.IMHP ---
H&P: HPI History of Present Illness Date/Time: 06/24/22 10:59 Chief Complaint: RUQ pain, vomiting Narrative: This is a 42-year-old women who presented to the ER with complaints of RUQ abdominal pain, back pain, and vomiting. Since about 1 month after delivery in 2019, she has been having intermittent episodes of diarrhea following greasy, fatty foods about monthly. She has also had a few episodes about yearly of mid back pain with vomiting after eating greasy foods. Typically after she vomits, her pain subsides at home and she has not had to seek medical attention for these symptoms. About 2 weeks ago, she had eaten chili for dinner and had an onset of the same type of mid back pain that woke her up in the middle of the night. This pain was more severe and radiated to her RUQ. She reports vomiting, but her pain did not subside. Her back pain continued throughout the day and she continued to have a pressure type of pain in the RUQ. The back pain improved, but ever since that episode she has felt full and had a mild pressure pain in the RUQ. She was able to eat and drink without vomiting. She felt that she was eating less because she felt full. Yesterday, she woke up around 5:00 am with the same type of back pain she felt previously. She had corn dogs and macaroni and cheese the night before for dinner. She began vomiting and continued to vomit multiple times throughout the day. She noticed her urine was a dark orange yesterday afternoon and though she was dehydrated from the vomiting. She decided to come into the ER for further evaluation after symptoms persisted. CT scan of the abdomen and pelvis showed hepatomegaly, cholelithiasis, mild gallbladder hydrops with gallbladder wall thickening, mild intra and extrahepatic bile duct dilation without definite obstructing common duct stone. RUQ US showed mild gallbladder hydrops with cholelithiasis and gallbladder wall thickening, which may represent cholecystitis. Renal US was also ordered for the dark urine and back pain, which was normal. Labs showed WBC 9,100, total bilirubin 2.0, AST 742, ALT 576, alk phos 161, and normal lipase. ER physician called our service and she has been admitted in the setting of cholecystitis with elevated liver enzymes. Labs were repeated this morning and her total bilirubin went up to 2.9. We have since consulted GI. The patient is now seen on the medical floor. Her back and RUQ abdominal pain has improved with IV analgesics. Her nausea has improved and she has not had any vomiting this morning. No other complaints at this time. Only previous abdominal surgery was a . Review of Systems Review of Systems: All systems reviewed & are unremarkable except as noted in HPI and below Constitutional: Constitutional: Reports no additional constitutional complaints, Denies chills, Denies fatigue, Denies fever(s) and Denies headache(s) Eyes: Eyes: Reports no additional eye complaints ENT: Reports system reviewed and no additional complaints, except as documented and Denies dizziness Cardiovascular: Cardiovascular: Reports no additional cardiovascular complaints, Denies chest pain and Denies leg edema Respiratory: Respiratory: Reports no additional respiratory complaints, Denies cough and Denies dyspnea Gastrointestinal: Gastrointestinal: Reports as per HPI, Reports no additional gastrointestinal complaints, Reports abdominal pain, Denies melena, Denies hematochezia, Denies coffee ground emesis, Reports nausea, Reports vomiting and Denies hematemesis Genitourinary: Genitourinary: Reports no additional female genitourinary complaints, Denies dysuria and Reports other (dark urine) Musculoskeletal: Musculoskeletal: Reports no additional musculoskeletal complaints, Denies abnormal gait, Denies joint swelling, Denies numbness and Denies tingling Integumentary/Breasts: Skin/Breast: Reports system reviewed and no additional complaints, except as docu and Denies jaundice Ne
--- NOTE | 2022-06-24 14:20 | WPDANESEPPF ---
Anes - Initial Pre Proc Eval Procedure: Operation Date: 06/24/22 14:15 Proposed Procedures p Endoscopic Retro Cholangiopancreatogram - Sagar Guerrero MD Operation Date: 06/25/22 12:00 Proposed Procedures p Laparoscopic Cholecystectomy - Matt Qiu DO Date/Time: 06/24/22 14:20 Surgeon: Matt Qiu DO Pre Op Diagnosis: cholecystitis, elevated LFTs Patient Data Age: 42 Gender: F Height: 1.68 m Weight: 96.7 kg Last Vital Signs Temp 98.3 F 06/24/22 14:04 Pulse 68 06/24/22 14:04 Resp 19 06/24/22 14:04 BP 122/64 06/24/22 14:04 Pulse Ox 100 06/24/22 14:04 O2 Del Method Room Air 06/24/22 14:04 Allergies Allergy/AdvReac Type Severity Reaction Status Date / Time Pertussis Vaccines Allergy Seizure Verified 06/24/22 13:59 Home Medications Medication Instructions Recorded Confirmed Type ergocalciferol (vitamin D2) 1,250 50,000 unit PO WEEKLY 08/04/19 06/24/22 History mcg (50,000 unit) capsule (Vitamin D2) cetirizine 5 mg tablet 5 mg PO DAILY 06/24/22 06/24/22 History multivitamin 1 tablet PO DAILY 06/24/22 06/24/22 History Laboratory Tests 06/23/22 06/23/22 06/23/22 17:53 19:52 19:52 WBC 9.1 K/mm3 K/mm3 (4.5-10.0) RBC 4.05 M/mm3 L M/mm3 (4.2-5.4) Hgb 12.2 g/dL g/dL (12.0-15.0) Hct 37.3 % % (37.0-47.0) MCV 92.1 fl fl (80-100) MCH 30.1 pg pg (26-34) MCHC 32.7 g/dl g/dl (32-36) RDW 13.4 % % (11.5-14.5) Plt Count 416 k/mm3 H k/mm3 (150-375) MPV 10.3 fl fl (7.4-10.4) Immature Gran % (Auto) 0.3 % % (0-0.5) Neut % (Auto) 80.8 % H % (45.5-73.1) Lymph % (Auto) 11.6 % L % (18.3-44.2) [place] % (Auto) 6.7 % % (2.6-8.5) Eos % (Auto) 0.3 % % (0-4.4) Baso % (Auto) 0.3 % % (0.2-1.2) Lymph # (Auto) 1.05 K/mm3 K/mm3 (0.9-3.2) [place] # (Auto) 0.6 K/mm3 K/mm3 (0.1-0.6) Eos # (Auto) 0.0 K/mm3 K/mm3 (0-0.3) Baso # (Auto) 0.0 K/mm3 K/mm3 (0.0-0.1) Abs Immat Gran (auto) 0.03 K/mm3 K/mm3 (0.00-0.031) Absolute Neuts (auto) 7.3 K/mm3 H K/mm3 (1.3-6.7) Absolute Nucleated RBC 0.0 K/mm3 K/mm3 (0.0-0.012) Nucleated RBC % 0.0 % % (0.0-0.2) Sodium 138 mmol/L mmol/L (137-145) Potassium 4.0 mmol/L mmol/L (3.4-5.0) Chloride 100 mmol/L mmol/L (98-107) Carbon Dioxide 26 mmol/L mmol/L (22-30) Anion Gap 12 mmol/L mmol/L (8-16) BUN 9 mg/dL mg/dL (7-17) Creatinine 0.50 mg/dL L mg/dL (0.7-1.0) Estim Creat Clear Calc 145 ml/min ml/min Estimated GFR > 60 (59 - ) Glucose 138 mg/dL H mg/dL (65-110) Calcium 8.9 mg/dL mg/dL (8.4-10.2) Total Bilirubin 2.0 mg/dL H mg/dL (0.2-1.3) Direct Bilirubin AST 742 U/L H U/L (14-36) ALT 576 U/L H U/L (6-35) Alkaline Phosphatase 161 U/L H U/L (38-126) Total Protein 8.0 g/dL g/dL (6.3-8.2) Albumin 4.4 g/dL g/dL (3.5-5.1) Lipase 242 U/L U/L (23-300) Beta HCG, Quant Urine Color Yellow (Yellow) Urine Appearance Slightly cloudy (Clear) Urine pH 6.5 (5.0-9.0) Ur Specific [place] 1.025 (1.001-1.035) Urine Protein 2+ mg/dL H mg/dL (Negative) Urine Glucose (UA) Negative mg/dL mg/dL (Negative) Urine Ketones 1+ mg/dL H mg/dL (Negative) Ur Blood (Man) Trace-intact (Negative) Urine Nitrate Negative (Negative) Urine Bilirubin 2+ H (Negative) Urine Urobilinogen 4.0 mg/dL H mg/dL (<2.0) Leukocyte Esterase Rfl Negative BRICE/UL BRICE/UL (Negative) Urine RBC 21-50 /hpf H /hpf (0-2) Urine WBC 0-3 /hpf /hpf
[2022-06-24] MEDS: INDOMETHACIN 50 MG SUPP.RECT RECTAL (14:42)
[2022-06-25] VITALS (9 sets, daily range): BP systolic 116–138; BP diastolic 62–77; PULSE 54–81; RESP 16–18; TEMP 36.1–36.9; O2SAT 98–100
--- NOTE | 2022-06-25 07:14 | WPDGIPROGNO ---
Progress Note: A&P Assessment and Plan (1) Transaminitis: Code(s): R74.01 - Elevation of levels of liver transaminase levels Status: Acute Assessment and Plan: Elevation of bilirubin and marked elevation of enzymes suggest choledocholithiasis. I will schedule her for ERCP which hopefully can be done later today. I discussed with her the anatomy of the biliary tract. I explained that she probably has stones and/or sludge at the distal common bile duct. I explained that the ERCP is a nonoperative means of clearing the common bile duct prior to a laparoscopic cholecystectomy. Alternatively, 1 could have an open procedure and exploration of the common bile duct. She understands that that would be much more involved. I explained that there is a risk of pancreatitis and a slight risk of bleeding or perforation when performing ERCP. Explained that we try to minimize the risk of pancreatitis through hydration and anti-inflammatory medication. 06/25/2022 she feels remarkably better. Her skin, which looked a bit jaundiced in her face yesterday is a little bit less so today. I will have her follow-up with me in the office to ensure that her LFTs return to normal. (2) Acute cholecystitis: Code(s): K81.0 - Acute cholecystitis Status: Acute Assessment and Plan: CT scan shows: Hepatomegaly. Cholelithiasis. Mild gallbladder hydrops with gallbladder wall thickening. Mild intra and extrahepatic bile duct dilation, without definite obstructing distal common bile duct stone or mass, possibly reactive to the inflammatory gallbladder change. She may well have a fatty liver but I doubt that her baseline liver enzymes are as high as they are now. She is concerned that her liver might be a problem if we do not find stones in her bile duct. I told her that most likely this is all acute but of course she will be followed afterwards. She has been trying to get connected with the primary care physician but had not done that yet. 2021 cholecystectomy today (3) Hepatic steatosis: Code(s): K76.0 - Fatty (change of) liver, not elsewhere classified Status: Acute Assessment and Plan: CT scan showed fatty liver. She will follow-up with me in the office to ensure that her liver enzymes return to normal. Subjective Date/time seen: 06/25/22 07:14 She feels much better today. Thinks that her urine is getting deadener in color. The back pain is gone. Surgery is going to be done around noon today. I told her that she should follow-up with me in the office in about 6 weeks because of elevated liver enzymes. Her blood was just recently drawn for today's labs and therefore results are not yet available Exam Const: General: alert and overweight Nutritional Appearance: overweight Orientation/consciousness: patient oriented x3 Resp: Auscultation: clear to auscultation bilaterally Cardio: Rhythm: regular rhythm GI: GI Palp: Yes Soft to palpation, Yes Tenderness to palpation present (GI) (Epigastric), No Guarding due to palpation present (GI) and Yes No hepatosplenomegaly present Auscultation: normal bowel sounds Neuro: General: patient oriented x3 Objective Data Vital Signs Vital Signs: Vital Signs - 24 hr 06/24/22 08:00 06/24/22 13:55 06/24/22 14:04 Temperature 36.7 C 36.8 C Pulse Rate 70 80 68 Respiratory Rate 20 16 19 Blood Pressure 133/63 122/64 Pulse Oximetry 99 97 100 Oxygen Delivery Room Air Room Air Oxygen Flow Rate 06/24/22 15:29 06/24/22 15:39 06/24/22 15:49 Temperature 36.6 C Pulse Rate 74 80 73 Respiratory Rate 24 H 22 H 19 Blood Pressure 122/69 113/72 109/73 Pulse Oximetry 100 97 98 Oxygen Delivery Simple Face Mask Room Air Room Air Oxygen Flow Rate 5 06/24/22 15:59 06/24/22 16:09 06/24/22 16:19 Temperature Pulse Rate 71 60 68 Respiratory Rate 17 18 20 Blood Pressure 112/62 111/64 121/68 Pulse Oximetry 98 98 99 Oxygen Delivery Room Air Room Air
[2022-06-25 07:23] LABS: Alanine Aminotransferase 575 U/L (6-35); Albumin Level 3.9 g/dL (3.5-5.1); Alkaline Phosphatase 234 U/L (38-126); Anion Gap 9 mmol/L (8-16); Aspartate Amino Transferase 217 U/L (14-36); Bilirubin,Total 1.4 mg/dL (0.2-1.3); Blood Urea Nitrogen 8 mg/dL (7-17); Calcium 8.5 mg/dL (8.4-10.2); Carbon Dioxide 23 mmol/L (22-30); Chloride 105 mmol/L (98-107); Estimated CRCL calculation 124 ml/min; Estimated Glomerular Filt Rate > 60; Glucose 121 mg/dL (65-110); Potassium 3.4 mmol/L (3.4-5.0); Sodium 137 mmol/L (137-145)
[2022-06-25 07:29] LABS: Hematocrit 37.8 % (37.0-47.0); Hemoglobin 12.2 g/dL (12.0-15.0); Mean Corpuscular HGB Conc 32.3 g/dl (32-36); Mean Corpuscular Hemoglobin 29.9 pg (26-34); Mean Corpuscular Volume 92.6 fl (80-100); Mean Platelet Volume 10.7 fl (7.4-10.4); Platelet Count Result 383 k/mm3 (150-375); Red Blood Count 4.08 M/mm3 (4.2-5.4); Red Cell Distribution Width 13.6 % (11.5-14.5); White Blood Count 10.1 K/mm3 (4.5-10.0)
[2022-06-25] MEDS: FAMOTIDINE 20 MG/2 ML VIAL IV PUSH (08:42)
[2022-06-25] MEDS: LACTATED RINGERS 1,000 ML 30 ML IV CONT ×2 (11:00→13:09)
--- NOTE | 2022-06-25 11:23 | WPDANESEPPF ---
Anes - Initial Pre Proc Eval Procedure: Operation Date: 06/24/22 14:15 Proposed Procedures p Endoscopic Retro Cholangiopancreatogram - Sagar Guerrero MD Operation Date: 06/25/22 12:00 Proposed Procedures p Laparoscopic Cholecystectomy - Matt Qiu DO Date/Time: 06/25/22 11:23 Surgeon: Matt Qiu DO Pre Op Diagnosis: cholecystitis, elevated LFTs Patient Data Age: 42 Gender: F Height: 1.68 m Weight: 96.7 kg Last Vital Signs Temp 36.1 C L 06/25/22 06:00 Pulse 81 06/25/22 08:00 Resp 16 06/25/22 08:00 BP 116/67 06/25/22 06:00 Pulse Ox 99 06/25/22 08:00 O2 Del Method Room Air 06/25/22 08:00 O2 Flow Rate 5 06/24/22 15:29 Allergies Allergy/AdvReac Type Severity Reaction Status Date / Time Pertussis Vaccines Allergy Seizure Verified 06/24/22 13:59 Home Medications Medication Instructions Recorded Confirmed Type ergocalciferol (vitamin D2) 1,250 50,000 unit PO WEEKLY 08/04/19 06/24/22 History mcg (50,000 unit) capsule (Vitamin D2) cetirizine 5 mg tablet 5 mg PO DAILY 06/24/22 06/24/22 History multivitamin 1 tablet PO DAILY 06/24/22 06/24/22 History Laboratory Tests 06/25/22 06/25/22 06:29 06:29 WBC 10.1 K/mm3 H K/mm3 (4.5-10.0) RBC 4.08 M/mm3 L M/mm3 (4.2-5.4) Hgb 12.2 g/dL g/dL (12.0-15.0) Hct 37.8 % % (37.0-47.0) MCV 92.6 fl fl (80-100) MCH 29.9 pg pg (26-34) MCHC 32.3 g/dl g/dl (32-36) RDW 13.6 % % (11.5-14.5) Plt Count 383 k/mm3 H k/mm3 (150-375) MPV 10.7 fl H fl (7.4-10.4) Sodium 137 mmol/L mmol/L (137-145) Potassium 3.4 mmol/L mmol/L (3.4-5.0) Chloride 105 mmol/L mmol/L (98-107) Carbon Dioxide 23 mmol/L mmol/L (22-30) Anion Gap 9 mmol/L mmol/L (8-16) BUN 8 mg/dL mg/dL (7-17) Creatinine 0.60 mg/dL L mg/dL (0.7-1.0) Estim Creat Clear Calc 124 ml/min ml/min Estimated GFR > 60 (59 - ) Glucose 121 mg/dL H mg/dL (65-110) Calcium 8.5 mg/dL mg/dL (8.4-10.2) Total Bilirubin 1.4 mg/dL H mg/dL (0.2-1.3) AST 217 U/L H U/L (14-36) ALT 575 U/L H U/L (6-35) Alkaline Phosphatase 234 U/L H U/L (38-126) Total Protein 7.0 g/dL g/dL (6.3-8.2) Albumin 3.9 g/dL g/dL (3.5-5.1) Patient hx anesthesia problems: none Family hx anesthesia problems: none Results Review: All pre-operative results and documents have been reviewed as part of the pre-operative evaluation. [facility] Past Medical History Medical History (Updated 06/25/22 @ 07:17 by Sagar Guerrero MD) GDM (gestational diabetes mellitus) Surgical History Surgical History History of delivery Family History Family History Father Diabetes mellitus Multiple system atrophy P Mother Hypertension Prediabetes Social History Social History Smoking status: Never smoker Second hand tobacco smoke exposure: No Alcohol intake: never Substance use: never Lack of Transportation: No Lack of Food: Never True Current Housing: I Have Housing Concerned About Future Housing: No Difficulty Paying Gas/Electric Bills: No Difficulty Paying for Meds: No Currently Unemployed: No Education: Master's Degree or Higher Difficulty w/ Childcare or Family Care: No Gender identity (if verbalized by the patient): Female Spiritual care concerns: No Anes - Eval Final PreProcedure Day of Procedure 06/25/22 11:23 Patient weight: obese Heart: regular rate and rhythm Lungs: clear to auscultation Airway: Mallampati scale Neurological: alert and oriented Last oral intake: >/= 8 hours ASA classification: II Emergent: no Anesthetic plan: proceed Anesthesia type and monito
--- NOTE | 2022-06-25 11:27 | WPDHPUPDATE1 ---
History and Physical Update Update Date/Time: 06/25/22 11:27 History and Physical has been reviewed, including an updated exam of the patient. There are NO changes in the patient's condition. Risks, benefits, and alternatives have been discussed and questions answered. Patient agrees to proceed with procedure.
[2022-06-25] MEDS: BUPIVACAINE/EPINEPHRINE 0.25% 50 ML VIAL 30 ML INFILTRATE (12:25)
--- NOTE | 2022-06-25 13:09 | W.PM.PROC2 ---
Procedure Note - Detailed Date of Procedure 06/25/22 Pre-op Diagnosis cholecystitis with choledocholithiasis Post-op Diagnosis Same Procedure Performed Laparoscopic Cholecystectomy Surgeon Matt Qiu, DO Anesthesia General and Local (0.5% bupivacaine) Indications This is a 42-year-old woman who presented to the emergency department with intermittent abdominal pain over the past 2 weeks. Her pain had been more constant over the last several days. She had also had intermittent problems over the past 2 years. She was noted to have significantly elevated liver enzymes in the emergency department and CT showed evidence of cholelithiasis with dilated intrahepatic and extrahepatic biliary ducts. She was admitted and GI was consulted. ERCP was performed yesterday and common bile duct stone was extracted. Discussions were made with the patient about treatment options and decision was made to proceed with laparoscopic cholecystectomy, possible open. Findings Laparoscopic cholecystectomy was performed. The gallbladder wall was chronically indurated. The cystic duct appeared to taper down to normal size. There were many small stones within the gallbladder. No other significant abnormalities were noted. The gallbladder was removed and sent to the lab for pathology. Description of Procedure Procedure as well as risks, benefits, and alternatives were discussed with patient. Written consent was obtained and placed in chart prior to procedure. The patient was brought back to surgical suite. Patient was placed in supine position on operating table. Time-out was done to confirm patient and procedure. Patient was then intubated by the anesthesia department. Abdomen was prepped and draped in sterile fashion using chlorhexidine prep. 0.5% bupivacaine with epinephrine was infiltrated at each site of incision. A 5 millimeter incision was made near the umbilicus, and a 5 millimeter Optiview trocar was advanced through the abdominal layers under direct visualization. Once inside the abdominal cavity, carbon dioxide was insufflated to create a pneumoperitoneum. The camera was inserted and the abdomen was inspected. No immediate abnormalities were identified. The patient was placed in reverse Trendelenburg position and rotated slightly to the left. An 11 millimeter incision was made in the subxiphoid region, and an 11 millimeter trocar was inserted under direct visualization. Two 5 millimeter incisions were made in the right upper quadrant, and two 5 millimeter trocars were inserted under direct visualization. The gallbladder was identified and grasped at the fundus and retracted superiorly. It was then grasped at the infundibulum retracted laterally. Careful dissection around the neck of the gallbladder was performed using blunt dissection with a [place] grasper and hook electrocautery. The cystic duct was identified, and a window was created behind it. The cystic artery was also identified and a window was created behind it. The critical view of safety was identified, visualizing the cystic duct running directly into the neck of the gallbladder, and the cystic artery running directly into the wall of the gallbladder. A 5 millimeter clip office clerk routine was then used to place 2 clips proximally and 1 clip distally on both the cystic duct and cystic artery. They were then both transected using endoscopic scissors. Once safely away from the brad hepatitis, the gallbladder was dissected free from the liver bed using hook electrocautery. Hemostasis was achieved along the way. The gallbladder was removed completely and then removed through the subxiphoid port. The liver bed was then inspected. Hemostasis appeared adequate, and our clips appeared secure. The area was gently irrigated with sterile saline. No other abnormalities were seen. The patient was flattened out in bed, and 1 final inspection was made around the abdominal cavity. The subxiphoid port was removed, a
[2022-06-25] MEDS: fentaNYL CITRATE INJ (*CRX) 100 MCG/2 ML VIAL 25 MCG IV PUSH ×4 (13:29→13:45)
--- NOTE | 2022-06-25 13:29 | WPDANESPN ---
Anes - Prog Note Post-Op Date/Time: 06/25/22 13:29 Cardiovascular status: normal Respiratory status: normal Airway patency: baseline Mental status: baseline Post-Op hydration status: normal Vital Signs: Last Vital Signs Temp 36.9 C 06/25/22 13:09 Pulse 54 L 06/25/22 13:20 Resp 18 06/25/22 13:20 BP 128/63 06/25/22 13:20 Pulse Ox 100 06/25/22 13:20 O2 Del Method Simple Face Mask 06/25/22 13:20 O2 Flow Rate 6 06/25/22 13:20 Pain Score (VAS): 2 I/O: Intake & Output 06/24/22 06/25/22 06/25/22 23:59 07:59 15:59 Intake Total 210 100 50 Output Total 400 Balance 210 100 -350 Laboratory Tests 06/25/22 06:29 06/25/22 06:29 06/25/22 06/25/22 06:29 06:29 WBC 10.1 H RBC 4.08 L Hgb 12.2 Hct 37.8 MCV 92.6 MCH 29.9 MCHC 32.3 RDW 13.6 Plt Count 383 H MPV 10.7 H Sodium 137 Potassium 3.4 Chloride 105 Carbon Dioxide 23 Anion Gap 9 BUN 8 Creatinine 0.60 L Estim Creat Clear Calc 124 Estimated GFR > 60 Glucose 121 H Calcium 8.5 Total Bilirubin 1.4 H AST 217 H ALT 575 H Alkaline Phosphatase 234 H Total Protein 7.0 Albumin 3.9 Patient Feedback: Patient satisfied with anesthetic care.
[2022-06-25] MEDS: HYDROcodone/acetaminophen (*CRX) 5-325 MG TABLET 1 TAB PO (15:19)
[2022-06-25] MEDS: ONDANSETRON INJ 4 MG/2 ML VIAL IV PUSH (15:20)
--- NOTE | 2022-06-25 17:33 | PM.DS ---
DS: Admitting Diagnosis Discharge Date 06/25/22 Admitting Diagnosis Acute cholecystitis, transaminitis, obesity DS: Discharge Diagnosis Discharge Diagnosis (1) Acute cholecystitis: Code(s): K81.0 - Acute cholecystitis Status: Acute (2) Transaminitis: Code(s): R74.01 - Elevation of levels of liver transaminase levels Status: Acute (3) Obesity (BMI 30.0-34.9): Code(s): E66.9 - Obesity, unspecified Status: Acute DS: Summary Hospital Course Reason for hospitalization: Acute cholecystitis Hospital Course: This is a 42-year-old woman who presented to the emergency department on 06/23/2022 with right flank abdominal pain and nausea and vomiting. She was found to have a normal white blood count but significantly elevated liver enzymes and CT showed evidence of acute calculous cholecystitis and dilated biliary ducts. Her bilirubin was 2.0 on admission and went up to 2.9 on 06/24/2022. GI was consulted and decision was made to proceed with ERCP. He underwent ERCP with sphincterotomy and removal of bile duct stone on 06/24/[address] Guerrero. She then underwent laparoscopic cholecystectomy on 06/25/2022. Surgery was uncomplicated and she was returned to the surgical floor postoperatively for recovery. Her diet and activity were advanced as tolerated. That evening she was tolerating a low-fat diet, pain was controlled, vitals remained stable, and she was ambulating in the halls. She was discharged home on 06/25/2022. Status at Discharge Functional status at discharge: independent ambulation Overall status at discharge: patient is back to baseline Time Spent with Patient Time attestation: Total time spent providing and/or coordinating discharge services: Time spent: Less than 30 minutes Exam Narrative: Unchanged from preoperative exam DS: Data Data Completed and Pending Completed studies during hospitalization: Pending at discharge 06/25/22 12:20 Surgical [PTH] Routine Discharge Plan Discharge Attending physician on discharge: Matt Gil Consulting providers: Sagar Guerrero ; Susan Rodrigues ; [place] Santana Paul ; Bigg Xavier ; Mj Barfield ; oTny Angulo Discharging Clinician: Matt Gil Patient Disposition: Home, Self-Care Activity: other - see discharge instructions Diet: low fat and other - see discharge instructions Wound Care Instructions: other - see discharge instructions Discharge Instructions: DISCHARGE INSTRUCTION SHEET FOR HERNIA, GALLBLADDER AND APPENDIX SURGERIES DR. GIL PATIENT TO TAKE HOME 1. May shower in 24 hours, no soaking in bath x 2weeks. 2. Call office for: Wound increasingly painful or bleeding Vomiting Fever of greater than 101 degrees 3. If no bowel movement for three days, take 1 oz. (30 ml) Milk of Magnesia or MiraLax 17g 1 to 2 times daily. 4. No heavy lifting > 10-15 pounds x weeks for hernia repairs and 2 weeks for laparoscopic cholecystectomy or appendectomy. 5. No driving for 3 days or while taking narcotic pain medications. 6. Ice to surgical site for 48 hours (30 min on, then 30 min off). 7. Up walking 10-30 minutes three times per day. 8. Resume previous home medications. 9. Follow-up 10-14 days in office for wound check or as previously scheduled. ([phone]) 10. Oral pain medications prescription to be sent to pharmacy. Take Tylenol 500mg every 6 hours and Ibuprofen 600mg every 6 hours for the first 2 days, then as needed. 11. NUTRITION: Start out by drinking fluids and increase your diet as tolerated. If you experience nausea, try dry toast, crackers, and 7-UP. If nausea or vomiting persists, contact your surgeon?s office. 12. Gallbladders-Low Fat Diet for 2 weeks (send care note of low fat diet) 13. Inguinal Hernias-wear scrotal support for 48 hours 14. Abdominal Hernias-if se
== END 2022-06-25 18:45 | disposition home or self-care (01) ==
LOC: ANHED 23:58 → ANH3MEDSUR 23:58
PROVIDERS: Emergency Medicine; Internal Medicine Gastroenterology; Nurse Practitioner Family; Admitting Provider Surgery; Emergency Provider Emergency Medicine; Visit Provider Surgery
PROC: (CPT 43260; principal; 2022-06-24 14:15)
PROC: 0FT44ZZ Resection of Gallbladder, Percutaneous Endoscopic Approach (ICD-10-PCS; CPT 47562; principal; 2022-06-25 12:00)
DX: K80.10 Calculus of gallbladder with chronic cholecystitis without obstruction (principal); R74.01 Elevation of levels of liver transaminase levels; K82.1 Hydrops of gallbladder; K76.0 Fatty (change of) liver, not elsewhere classified; R16.0 Hepatomegaly, not elsewhere classified; K44.9 Diaphragmatic hernia without obstruction or gangrene; E66.9 Obesity, unspecified; Z68.34 Body mass index [BMI] 34.0-34.9, adult; Z20.822 Contact with and (suspected) exposure to COVID-19; Z79.899 Other long term (current) drug therapy
CPT/HCPCS: 47562; 43262; 43264; 36415; 74177; 74329; 76705; 76775; 80053; 80076; 81001; 81025; 83690; 84702; 85025; 85027; 88304; 96361; 96365; 96374; 96375; 96376; 99285; A9270; G0378; J0330; J1100; J1170; J1200; J1610; J2250; J2270; J2405; J2543; J2704; J2710; J2765; J3010; J7120; Q9967; U0003; U0005

== ENCOUNTER 2022-10-06 14:23 | Outpatient (CLI) | payer OTHER, SELFPAY ==
--- NOTE | ~2022-10-06 | MM_ITS ---
EXAMINATION: MM screening rosalie BI w celeste HISTORY: Screening mammogram, family history of breast cancer in her mother. TECHNIQUE: Craniocaudal and mediolateral oblique 3-D tomosynthesis images were obtained and synthetic 2-D images were generated. CAD analysis was submitted and interpreted. COMPARISON: None, baseline BREAST PARENCHYMAL COMPOSITION: There are scattered areas of fibroglandular density. FINDINGS: RIGHT BREAST: No suspicious mass, calcification, or architectural distortion are identified to sugges t malignancy. LEFT BREAST: An asymmetry is present in the posterior third of the lower breast on the mediolateral o blique view. IMPRESSION: 1. Left breast asymmetry. 2. Additional mammographic views and possible breast ultrasound are recommended. BI-RADS Category 0: Incomplete: Needs additional imaging evaluation. Reviewed, dictated and finalized at location A. [facility] IMPRESSION: 1. Left breast asymmetry. 2. Additional mammographic views and possible breast ultrasound are recommended . BI-RADS Category 0: Incomplete: Needs additional imaging evaluation.
== END 2022-10-06 14:24 | disposition home or self-care (01) ==
LOC: ANHIMG 14:27
PROVIDERS: PCP Family Medicine; Visit Provider Obstetrics & Gynecology Gynecology
DX: Z12.31 Encounter for screening mammogram for malignant neoplasm of breast (principal); R92.8 Other abnormal and inconclusive findings on diagnostic imaging of breast
CPT/HCPCS: 77063; 77067

== ENCOUNTER 2022-10-28 14:04 | Outpatient (CLI) | payer OTHER, SELFPAY ==
--- NOTE | ~2022-10-28 | MM_ITS ---
EXAMINATION: MM diagnostic rosalie LT w celeste HISTORY: Follow-up left breast asymmetry TECHNIQUE: Additional 3-D tomosynthesis images of the left breast were performed and synthetic 2-D im ages were generated. CAD analysis was submitted and interpreted. COMPARISON: 10/06/2022 BREAST PARENCHYMAL COMPOSITION: BREAST PARENCHYMAL COMPOSITION: There are scattered areas of fibroglandular density. FINDINGS: The left breast is composed of normal heterogeneous fibroglandular tissue without focal mas s, asymmetry or architectural distortion. The focal area of asymmetry seen on prior MLO view compress es with spot views, compatible with superimposed fibroglandular tissue. IMPRESSION: 1. No evidence for malignancy in the left breast. 2. Recommend routine screening mammography in one year. BI-RADS Category 1: Negative Reviewed, dictated and finalized at location A.
== END 2022-10-28 14:05 | disposition home or self-care (01) ==
PROVIDERS: PCP Family Medicine; Visit Provider Family Medicine
DX: R92.8 Other abnormal and inconclusive findings on diagnostic imaging of breast (principal)
CPT/HCPCS: 77061; 77065; G0279

== ENCOUNTER 2022-11-06 08:59 | Outpatient (CLI) | payer OTHER, SELFPAY ==
[2022-11-06 09:33] LABS: Basophils Percent Auto 0.4 % (0.2-1.2); Eosinophils Absolute Auto 0.2 K/mm3 (0-0.3); Eosinophils Percent Auto 2.2 % (0-4.4); Hematocrit 38.1 % (37.0-47.0); Hemoglobin 12.2 g/dL (12.0-15.0); Immature Granulocyte Absolute 0.03 K/mm3 (0.00-0.031); Immature Granulocyte Percent A 0.4 % (0-0.5); Lymphocytes Absolute Auto 2.13 K/mm3 (0.9-3.2); Lymphocytes Percent Auto 30.9 % (18.3-44.2); Mean Corpuscular Hemoglobin 30.3 pg (26-34); Mean Corpuscular Volume 94.5 fl (80-100); Mean Platelet Volume 10.4 fl (7.4-10.4); Monocytes Absolute Auto 0.4 K/mm3 (0.1-0.6); Monocytes Percent Auto 5.8 % (2.6-8.5); Neutrophils Absolute Auto 4.2 K/mm3 (1.3-6.7); Neutrophils Percent Auto 60.3 % (45.5-73.1); Platelet Count Result 337 k/mm3 (150-375); Red Blood Count 4.03 M/mm3 (4.2-5.4); Red Cell Distribution Width 14.3 % (11.5-14.5); White Blood Count 6.9 K/mm3 (4.5-10.0)
[2022-11-06 09:49] LABS: Anion Gap 5 mmol/L (8-16); Bilirubin,Total 0.5 mg/dL (0.2-1.3); Blood Urea Nitrogen 11 mg/dL (7-17); Calcium 8.9 mg/dL (8.4-10.2); Carbon Dioxide 29 mmol/L (22-30); Chloride 103 mmol/L (98-107); Estimated Glomerular Filt Rate > 60; Glucose 103 mg/dL (65-110); Sodium 137 mmol/L (137-145)
[2022-11-06 09:50] LABS: Alanine Aminotransferase 21 U/L (6-35); Alkaline Phosphatase 72 U/L (38-126); Aspartate Amino Transferase 20 U/L (14-36); Cholesterol 179 mg/dL (0-200); HDL Direct 58 mg/dL; Triglycerides 66 mg/dL (<150)
[2022-11-06 10:00] LABS: LDL Cholesterol Direct 87 mg/dL
[2022-11-06 10:23] LABS: Hemoglobin A1C 5.4 % (<5.7)
== END 2022-11-06 09:00 | disposition home or self-care (01) ==
LOC: ANHLAB 09:00
PROVIDERS: PCP Family Medicine; Visit Provider Family Medicine
DX: Z00.00 Encounter for general adult medical examination without abnormal findings (principal); R73.09 Other abnormal glucose
CPT/HCPCS: 36415; 80053; 80061; 83036; 85025; 99212; G0463

== ENCOUNTER 2024-03-08 08:02 | Outpatient (CLI) | payer OTHER, SELFPAY ==
[2024-03-08 08:40] LABS: Basophils Percent Auto 0.3 % (0.2-1.2); Eosinophils Absolute Auto 0.2 K/mm3 (0-0.3); Eosinophils Percent Auto 2.7 % (0-4.4); Hematocrit 37.9 % (37.0-47.0); Hemoglobin 12.3 g/dL (12.0-15.0); Immature Granulocyte Absolute 0.01 K/mm3 (0.00-0.031); Immature Granulocyte Percent A 0.2 % (0-0.5); Lymphocytes Absolute Auto 1.82 K/mm3 (0.9-3.2); Lymphocytes Percent Auto 30.2 % (18.3-44.2); Mean Corpuscular HGB Conc 32.5 g/dl (32-36); Mean Corpuscular Hemoglobin 31.1 pg (26-34); Mean Corpuscular Volume 95.7 fl (80-100); Mean Platelet Volume 10.4 fl (7.4-10.4); Monocytes Absolute Auto 0.4 K/mm3 (0.1-0.6); Monocytes Percent Auto 6.5 % (2.6-8.5); Neutrophils Absolute Auto 3.6 K/mm3 (1.3-6.7); Neutrophils Percent Auto 60.1 % (45.5-73.1); Platelet Count Result 300 k/mm3 (150-375); Red Blood Count 3.96 M/mm3 (4.2-5.4); Red Cell Distribution Width 13.7 % (11.5-14.5)
[2024-03-08 08:55] LABS: Alanine Aminotransferase 24 U/L (6-35); Alkaline Phosphatase 70 U/L (38-126); Anion Gap 8 mmol/L (4-12); Aspartate Amino Transferase 23 U/L (14-36); Bilirubin,Total 0.4 mg/dL (0.2-1.3); Blood Urea Nitrogen 12 mg/dL (7-17); Calcium 8.7 mg/dL (8.4-10.2); Carbon Dioxide 27 mmol/L (22-30); Chloride 103 mmol/L (98-107); Cholesterol 160 mg/dL (0-200); Estimated Glomerular Filt Rate > 60; Glucose 110 mg/dL (65-110); HDL Direct 51 mg/dL; Potassium 3.8 mmol/L (3.4-5.0); Sodium 138 mmol/L (137-145); Triglycerides 63 mg/dL (<150)
[2024-03-08 09:06] LABS: LDL Cholesterol Direct 87 mg/dL
[2024-03-08 11:32] LABS: Hemoglobin A1C 5.8 % (<5.7)
== END 2024-03-08 08:03 | disposition home or self-care (01) ==
LOC: ANHLAB 08:04
PROVIDERS: PCP Family Medicine; Visit Provider Family Medicine
DX: Z00.00 Encounter for general adult medical examination without abnormal findings (principal)
CPT/HCPCS: 36415; 80053; 80061; 83036; 85025

== ENCOUNTER 2024-03-08 08:05 | Outpatient (CLI) | payer OTHER, SELFPAY ==
[2024-03-08 11:37] LABS: Free T4 Free Thyroxine 1.17 ng/mL (0.78-2.19); Vitamin D 25 Hydroxy 50.6 ng/mL
== END 2024-03-08 08:06 | disposition home or self-care (01) ==
LOC: ANHLAB 08:06
PROVIDERS: PCP Family Medicine; Visit Provider Advanced Practice Midwife
DX: E55.9 Vitamin D deficiency, unspecified (principal); R53.83 Other fatigue
CPT/HCPCS: 36415; 80053; 80061; 82306; 83036; 84439; 84443; 85025; 99212; G0463

== ENCOUNTER 2024-05-19 15:49 | Outpatient (CLI) | payer OTHER, SELFPAY ==
--- NOTE | ~2024-05-19 | MM_ITS ---
EXAMINATION: MM screening rosalie BI w celeste HISTORY: Screening TECHNIQUE: Craniocaudal and mediolateral oblique 3-D tomosynthesis images were obtained and synthetic 2-D images were generated. CAD analysis was submitted and interpreted. COMPARISON: 10/06/2022 BREAST PARENCHYMAL COMPOSITION: Not dense: There are scattered areas of fibroglandular density. FINDINGS: There is no evidence of suspicious mass, calcification, or architectural distortion to sugg est malignancy in either breast. There has been no suspicious interval change. IMPRESSION: 1. No mammographic evidence of malignancy. 2. Recommend routine screening mammography in one year. BI-RADS Category 1: Negative Reviewed, dictated and finalized at location B.
== END 2024-05-19 15:50 | disposition home or self-care (01) ==
PROVIDERS: PCP Family Medicine; Visit Provider Advanced Practice Midwife
DX: Z12.31 Encounter for screening mammogram for malignant neoplasm of breast (principal)
CPT/HCPCS: 77063; 77067